=== PATIENT | female | born 1985 | race Caucasian/White ===

== ENCOUNTER 2017-01-14 18:48 | Emergency (ER) | payer OTHER ==
[~2017-01-14] VITALS: Ht 185.4 cm; Wt 81.8 kg
[~2017-01-14 18:48] MED LIST: EC NAPROSYN500 MG PO; NORCO 325 MG-51 TAB PO; NUVARING1 ICR VG; ZANTAC 150MG T150 MG PO; ZYRTEC 10MG10 MG PO
[2017-01-14 18:49] VITALS: TEMP 98.1
[2017-01-14] MEDS ORDERED: DASETTA 1/35 351 TAB PO (18:52)
[2017-01-14 19:25] LABS: BASO % 0.7 % (0.0-2.0); EOS # 0.4 (0.0-0.7); EOS % 6.7 % (0-4.0); GRAN # 2.7 (1.4-6.5); GRAN % 43.5 % (42.2-75.2); HEMATOCRIT 39.5 % (37.0-47.0); HEMOGLOBIN 13.2 g/dl (12.5-16.0); LYMPH # 2.4 (1.2-3.4); LYMPH % 38.6 % (20.0-51.0); MEAN CELL VOLUME 86 fl (80.0-100.0); MEAN CORPUSCULAR HEMOGLOBIN 29 pg (27.0-31.0); MEAN CORPUSCULAR HGB CONC 33 g/dl (33.0-37.0); MEAN PLATELET VOLUME 10.9 fl (7.4-10.4); MONO # 0.6 (0.1-0.6); MONO % 10.3 % (1.7-9.3); PLATELET COUNT 234 K/mm3 (130-400); RED BLOOD COUNT 4.62 M/mm3 (4.10-5.30); REDCELL DISTRIBUTION WIDTH-CV 12.5 % (11.5-14.5); WHITE BLOOD COUNT 6.1 K/mm3 (4.8-10.8)
[2017-01-14 19:35] LABS: ADJUSTED CALCIUM 9.2 mg/dL (8.4-10.2); BILIRUBIN,TOTAL 0.5 mg/dL (0.0-1.0); CALCIUM 9.2 mg/dL (8.4-10.2); CREATININE, serum 0.72 mg/dL (0.52-1.25); TOTAL PROTEIN 7.2 gm/dL (6.4-8.2)
[2017-01-14] MEDS ORDERED: ULTRAM 50MG TAB50 MG PO (20:01)
[2017-01-14] MEDS ORDERED: ZOFRAN8 MG PO (20:01)
[2017-01-14] MEDS ORDERED: PRIL40 PO (20:05)
[2017-01-14 20:24] LABS: PH 6 (5-8); URINE APPEARANCE Hazy; URINE BACTERIA Rare /hpf; URINE BILIRUBIN Negative (NEGATIVE); URINE BLOOD Negative (NEGATIVE); URINE COLOR Straw; URINE GLUCOSE Negative (NEGATIVE); URINE KETONE Negative (NEGATIVE); URINE RBC 0-2 /hpf; URINE UROBILINOGEN Negative (NEGATIVE)
[2017-01-14 21:25] VITALS: BP 105/66; PULSE 81
== END 2017-01-14 21:25 | disposition home or self-care (01) ==
LOC: COL.ER 18:48
PROVIDERS: Emergency Medicine
DX: R10.11 Right upper quadrant pain (principal); R10.12 Left upper quadrant pain; R10.13 Epigastric pain
CPT/HCPCS: J1170; J2405; J7030

== ENCOUNTER 2018-06-17 21:00 | Emergency (ER) | payer OTHER ==
[~2018-06-17] VITALS: Ht 185.4 cm; Wt 75.9 kg
[~2018-06-17 21:00] MED LIST changes: +DASETTA 1/35 351 TAB PO; +PRIL40 PO; +ULTRAM 50MG TAB50 MG PO; +ZOFRAN8 MG PO
[2018-06-17 21:13] VITALS: BP 126/77; TEMP 99
[2018-06-17] MEDS ORDERED: NORCO 325 MG-51 TAB PO (22:59)
[2018-06-17 23:35] VITALS: PULSE 78
== END 2018-06-17 23:35 | disposition home or self-care (01) ==
LOC: COL.ER 21:00
DX: S80.12XA Contusion of left lower leg, initial encounter (principal); W55.89XA Other contact with other mammals, initial encounter
CPT/HCPCS: J1170; J1885; J3010; J7030

== ENCOUNTER 2019-04-23 11:49 | Outpatient (CLI) | payer OTHER ==
[~2019-04-23] VITALS: Ht 2.5 cm; Wt 96.8 kg
--- NOTE | 2019-04-23 11:30 | NUR ---
Pt arrives on unit ambulatory. States possible SROM at 0900 while walking downstairs. Reports GFM. Denies vaginal bleeding or regular ctx. Changed into clean gown. EFM and toco applied. VSS. Amniotest negative. SVE per this RN /2 with TAYLOR. Admission assessment completed. Pt updated on POC. Dr. Corcoran notified of pt status. See physician notification. 1200-Pt taken off monitors. Discharge instructions given. No questions or concerns at this time. Leaves unit ambulatory with family.
[2019-04-23] MEDS ORDERED: PRENATAL MVI (11:55)
[2019-04-23 12:00] VITALS: BP 134/95; PULSE 93; TEMP 98.1
== END 2019-04-23 12:00 | disposition home or self-care (01) ==
LOC: LDRO 11:49 → LDR 11:49 → LDRO 12:00 → LDR 12:00
DX: Z34.93 Encounter for supervision of normal pregnancy, unspecified, third trimester (principal); Z3A.40 40 weeks gestation of pregnancy
CPT/HCPCS: OP

== ENCOUNTER 2019-04-23 23:37 | Inpatient (IN) | payer OTHER ==
[~2019-04-23] VITALS: Ht 185.4 cm; Wt 96.8 kg
[~2019-04-23 23:37] MED LIST changes: +PRENATAL MVI
[2019-04-24] VITALS (42 sets, daily range): BP systolic 93–158; BP diastolic 50–89; PULSE 72–116; TEMP 97.1–98.3
[2019-04-24 01:46] LABS: BASO % 0.3 % (0.0-2.0); EOS # 0.1 (0.0-0.7); EOS % 1.2 % (0-4.0); GRAN # 5.5 (1.4-6.5); GRAN % 64.5 % (42.2-75.2); HEMATOCRIT 38.7 % (37.0-47.0); HEMOGLOBIN 12.6 g/dl (12.5-16.0); LYMPH # 2.2 (1.2-3.4); LYMPH % 25.2 % (20.0-51.0); MEAN CELL VOLUME 81 fl (80.0-100.0); MEAN CORPUSCULAR HEMOGLOBIN 26 pg (27.0-31.0); MEAN CORPUSCULAR HGB CONC 33 g/dl (33.0-37.0); MEAN PLATELET VOLUME 12.6 fl (7.4-10.4); MONO # 0.7 (0.1-0.6); MONO % 8.5 % (1.7-9.3); PLATELET COUNT 208 K/mm3 (130-400); RED BLOOD COUNT 4.77 M/mm3 (4.10-5.30); REDCELL DISTRIBUTION WIDTH-CV 15.2 % (11.5-14.5)
--- NOTE | 2019-04-24 02:00 | NUR ---
2345- Patient ambulatory to [facility] with friend and maintenance mechanic technician. Patient and friend oriented to room. Patient into restroom to change into gown. 2352- EFM and TOCO on and tracing. Patient here with complaints of contractions every 4-5 minutes starting at 2100. Patient was on L&D at 1100 today for SROM check. Patient denies LOF or bleeding. Patient states she has had increased pink-tinged discharge today. IOL 04/24/19. Assessment completed. 0000- SVE 4-/-2 0100- SVE /-2 with bulgy BOF. 0100- See Physician Notification. 0130- Consents signed. IV started. LR bolus infusing. PCN G #1 infusing per GBS+ protocol. 0145- CT Garces called for epidural placement. 0210- CT Garces at bedside for epidural placement. 0220- Single Shot. See Anesthesia Record. 0223- Test Dose. See Anesthesia Record. 0230- Family History unobtainable due to adoption. 0300- SVE 5-/-2
--- NOTE | 2019-04-24 09:24 | NUR ---
[address] AGUILAR, MECONIUM FLUID NOTED ON PAD. WILL START PUSHING WITH PATIENT AT THIS TIME.
--- NOTE | 2019-04-24 09:28 | NUR ---
0820 DR AGUILAR AT BEDSIDE FOR DELIVERY. PATIENT PUSHES WITH CONTRACTIONS. DELIVERS BABY BOY AT THIS TIME. CORD CLAMPED AND CUT BY DR AGUILAR AT THIS TIME. BABY TO MOMS CHEST. STRONG CRY NOTED. SMALL REPAIR DONE BY DR AGUILAR. 0827 PLACENTA DELIVERED AT THIS TIME. PITOCIN STARTED AT 333/HR AT THIS TIME. FUNDUS FIRM, BLEEDING NOTED WNL. PATIENT DENIES NEEDS AT THIS TIME.
[2019-04-25 04:15] VITALS: BP 122/80; PULSE 85
--- NOTE | 2019-04-25 10:04 | NUR ---
Initial visit; Parents thanked Sample Collector for offering congratulations and God's blessings for the of their son. Sample Collector thanked family for choosing [facility].
[2019-04-25] MEDS ORDERED: IBU600 MG PO (13:01)
[2019-04-25 16:08] VITALS: BP 104/66; PULSE 76; TEMP 98.4
[2019-04-25 20:30] VITALS: BP 122/66; PULSE 89; TEMP 98.1
[2019-04-26 10:09] VITALS: BP 115/64; PULSE 78; TEMP 97.9
== END 2019-04-26 12:10 | disposition home or self-care (01) | DRG 807 ==
LOC: LDRO 23:37 → OB 04-24 01:10 → LDR 04-24 01:10 → OB 04-24 11:00
PROVIDERS: ADMIT Obstetrics & Gynecology
PROC: 10E0XZZ Delivery of Products of Conception, External Approach (ICD-10-PCS; principal; 2019-04-24)
PROC: 0W8NXZZ Division of Female Perineum, External Approach (ICD-10-PCS; 2019-04-24)
PROC: 0UQMXZZ Repair Vulva, External Approach (ICD-10-PCS; 2019-04-24)
DX: O48.0 Post-term pregnancy (principal); Z37.0 Single live birth; Z3A.40 40 weeks gestation of pregnancy; O77.0 Labor and delivery complicated by meconium in amniotic fluid; O70.0 First degree perineal laceration during delivery
CPT/HCPCS: J2540; J2590; J2795; J7120

== ENCOUNTER 2020-05-20 17:01 | Emergency (ER) | payer BC, MEDICAID ==
[~2020-05-20] VITALS: Ht 185.4 cm; Wt 90.9 kg
[~2020-05-20 17:01] MED LIST changes: +IBU600 MG PO
[2020-05-20 17:14] VITALS: TEMP 98.3
[2020-05-20 18:00] VITALS: BP 125/69; PULSE 81
[2020-05-20] MEDS ORDERED: SLOW FE142 MG PO (18:55)
== END 2020-05-20 18:15 | disposition other institution (70) ==
LOC: COL.ER 17:01
DX: O26.893 Other specified pregnancy related conditions, third trimester (principal); R03.1 Nonspecific low blood-pressure reading; R10.30 Lower abdominal pain, unspecified; Z79.1 Long term (current) use of non-steroidal anti-inflammatories (NSAID); Z3A.30 30 weeks gestation of pregnancy

== ENCOUNTER 2020-05-20 18:49 | Outpatient (CLI) | payer BC, MEDICAID ==
[2020-05-20] VITALS (8 sets, daily range): BP systolic 104–127; BP diastolic 53–65; PULSE 68–78; TEMP 98.4
[~2020-05-20] VITALS: Ht 182.9 cm; Wt 91.4 kg
[2020-05-20] MEDS ORDERED: SLOW FE142 MG PO (18:55)
--- NOTE | 2020-05-20 19:00 | NUR ---
Patient here from ER. Patient states that she has been having intermittent right lower quadrant pain that sometimes is sharp pain into her vaginal area. Patient denies any pain while lying in bed. Patient states that today she has been feeling dizziness and headache upon standing. Has checked her BP today and has been low for her. Patient states her baby has been active, denies any leaking of fluid, vaginal bleeding. FHR and contractions placed and explained. VS stable and WNL. Assessment completed and doctor called for orders.
--- NOTE | 2020-05-20 20:00 | NUR ---
Patient discharge instructions reviewed with patient. Patient states she feels better after hearing baby. INT in left anticubital removed. Patient off monitor and off unit at 2009.
== END 2020-05-20 20:10 | disposition home or self-care (01) ==
LOC: LDRO 18:49
DX: O13.3 Gestational [pregnancy-induced] hypertension without significant proteinuria, third trimester (principal); O26.893 Other specified pregnancy related conditions, third trimester; R42 Dizziness and giddiness; R10.31 Right lower quadrant pain; Z3A.30 30 weeks gestation of pregnancy

== ENCOUNTER 2020-07-22 11:59 | Inpatient (IN) | payer BC, MEDICAID ==
[~2020-07-22] VITALS: Ht 185.4 cm; Wt 95.0 kg
[2020-07-22] VITALS (17 sets, daily range): BP systolic 85–125; BP diastolic 7–88; PULSE 81–112; TEMP 97.5–98.1
--- NOTE | 2020-07-22 11:50 | NUR ---
Pt here from admissions with c/o contractions that started last night. Pt to EFM, explained. G3L2, 39.3 weeks gestation. GBS negative. SVE 6-7/100/-2 with bulgy bag of campos. Dr Fabian here on unit and notified. Orders received to admit and may have an epidural. IV started to right hand x 1 attempt and blood drawn from IV site per this nurse. LR bolus started and Marilyn PLACING JUDGE on unit and notified she is requesting an epidural. Consents signed. Assessment complete. Pt denies any leaking of fluid or vaginal bleeding. FHR reactive and when pt sits up with contraction, maternal pulse tracing on EFM intermittently. 1225:Marilyn PLACING JUDGE at bedside. Pt to sitting up on side of bed. Epidural placed and test dose at 1236. 1245:Pt repositioned to right side. 1250:Dr Fabian here and SVE: 6-7/100/-1, AROM and clear fluid noted.
[~2020-07-22 11:59] MED LIST changes: +SLOW FE142 MG PO
--- NOTE | 2020-07-22 12:05 | NUR ---
Pt refuses to be screened for covid at this time. Dr. Fabian notified, no new orders.
[2020-07-22 12:36] LABS: BASO % 0.3 % (0.0-2.0); EOS # 0.2 (0.0-0.7); EOS % 1.8 % (0-4.0); GRAN # 10.6 (1.4-6.5); HEMATOCRIT 41.2 % (37.0-47.0); HEMOGLOBIN 13.6 g/dl (12.5-16.0); LYMPH # 1.4 (1.2-3.4); LYMPH % 10.9 % (20.0-51.0); MEAN CELL VOLUME 84 fl (80.0-100.0); MEAN CORPUSCULAR HEMOGLOBIN 28 pg (27.0-31.0); MEAN CORPUSCULAR HGB CONC 33 g/dl (33.0-37.0); MEAN PLATELET VOLUME 11.2 fl (7.4-10.4); MONO # 0.9 (0.1-0.6); MONO % 6.4 % (1.7-9.3); PLATELET COUNT 222 K/mm3 (130-400); RED BLOOD COUNT 4.88 M/mm3 (4.10-5.30); REDCELL DISTRIBUTION WIDTH-CV 14.6 % (11.5-14.5)
--- NOTE | 2020-07-22 13:00 | NUR ---
BP decreased to 91/50. Pt feeling dizzy and lightheaded and pale. Pt's head of bed decreased and 10mg ephedrine given IV. Pt repositioned to right lateral. 1305:pt feeling much better, BP increaesd and now WNL.
--- NOTE | 2020-07-22 14:15 | NUR ---
Pt comfortable with epidural. SVE: complete +1. Dr Fabian called to notify, see physician notification. Turner catheter removed, pt prepped for delivery. 1438:Dr Fabian here. 1442:Pt begins to push and pushes with two contractions. 1446: of 's head and shoulders. Cord clamped and cut and baby in care of Carmen OLIVAS. Perineum intact. 1451:Spontaneous delivery of placenta. LR with pitocin infusing per protocol. fundus firm, bleeding WNL. Pericare done and new pads and ice pack in place.
--- NOTE | 2020-07-22 17:30 | NUR ---
Pt up and ambulates to bathroom with assist. Voids 700cc. Pericare instructions given, pt verbalizes understanding. New gown, underwear and ice packs in place. Fundus firm, bleeding WNL. Pt taken to room 215 via wheelchair, pt denies any pain.
[2020-07-23 01:55] VITALS: BP 106/55; PULSE 71; TEMP 97.7
[2020-07-23] MEDS ORDERED: IBU600 MG PO (08:42)
--- NOTE | 2020-07-23 08:43 | NUR ---
Initial visit attempt; Family resting, Latin American Studies Director left card of congratulations for the of their son and information regarding the availability of spiritual care at our hospital.
[2020-07-23 08:50] VITALS: BP 104/62; PULSE 74; TEMP 97.7
== END 2020-07-23 16:05 | disposition home or self-care (01) | DRG 807 ==
LOC: LDRO 11:59 → OB 12:00 → LDR 12:00 → OB 14:30
PROVIDERS: ADMIT Obstetrics & Gynecology
PROC: 10E0XZZ Delivery of Products of Conception, External Approach (ICD-10-PCS; principal; 2020-07-22)
PROC: 10907ZC Drainage of Amniotic Fluid, Therapeutic from Products of Conception, Via Natural or Artificial Opening (ICD-10-PCS; 2020-07-22)
DX: O99.02 Anemia complicating childbirth (principal); Z37.0 Single live birth; D64.9 Anemia, unspecified; Z3A.39 39 weeks gestation of pregnancy
CPT/HCPCS: J2590; J2795; J7120

== ENCOUNTER → 2022-06-16 | Outpatient (CLI) | payer BC, MEDICAID ==
[~2022-06-16] MED LIST changes: +FLEXERIL 1010 MG/TAB PO
== END ==
LOC: COL.CARD 11:01
DX: R00.2 Palpitations (principal)

== ENCOUNTER 2022-06-17 21:41 | Emergency (ER) | payer MEDICAID ==
[~2022-06-17] VITALS: Ht 185.4 cm; Wt 78.6 kg
[~2022-06-17 21:41] MED LIST changes: -FLEXERIL 1010 MG/TAB PO
[2022-06-17 21:44] VITALS: TEMP 98
[2022-06-17 22:26] LABS: ALANINE AMINOTRANSFERASE 27 U/L (0-55); ALBUMIN 4.4 gm/dL (3.5-5.0); ALKALINE PHOSPHATASE 69 U/L (40-150); ANION GAP 13 mmol/L (7-16); AST,SGOT 30 U/L (5-34); BILIRUBIN,TOTAL 0.2 mg/dL (0.2-1.2); BLOOD UREA NITROGEN 14 mg/dL (7-19); CALCIUM 9.5 mg/dL (8.4-10.2); CARBON DIOXIDE 21 mmol/L (22-29); CHLORIDE 107 mmol/L (98-107); GLUCOSE 77 mg/dL (70-99); POTASSIUM 4.3 mmol/L (3.5-4.5); SODIUM 141 mmol/L (136-145); TOTAL PROTEIN 7.6 gm/dL (6.2-8.1)
[2022-06-17 22:32] LABS: TROPONIN-I < 0.010 ng/mL (0.00-0.033)
[2022-06-17 22:51] LABS: BASO # 0.1 K/mm3 (0.0-0.2); BASO % 0.8 % (0.0-2.0); EOS # 0.3 K/mm3 (0.0-0.7); EOS % 5.6 % (0.0-4.0); GRAN # 2.4 K/mm3 (1.4-6.5); GRAN % 41.2 % (42.2-75.2); HEMATOCRIT 37.8 % (37.0-47.0); HEMOGLOBIN 12.3 g/dl (12.5-16.0); LYMPH # 2.4 K/mm3 (1.2-3.4); LYMPH % 40.6 % (20.0-51.0); MEAN CELL VOLUME 84 fl (80.0-100.0); MEAN CORPUSCULAR HEMOGLOBIN 27 pg (27-31); MEAN CORPUSCULAR HGB CONC 33 g/dl (33.0-37.0); MONO # 0.7 K/mm3 (0.1-0.6); MONO % 11.6 % (1.7-9.3); PLATELET COUNT 228 K/mm3 (130-400); REDCELL DISTRIBUTION WIDTH-CV 12.9 % (11.5-14.5)
[2022-06-17] MEDS ORDERED: FLEXERIL 1010 MG/TAB PO (23:01)
[2022-06-17 23:16] VITALS: BP 116/69; PULSE 73
== END 2022-06-17 23:16 | disposition home or self-care (01) ==
LOC: COL.ER 21:41
PROVIDERS: Emergency Medicine
DX: R20.2 Paresthesia of skin (principal); Z28.310 Unvaccinated for COVID-19

== ENCOUNTER 2022-07-31 18:14 | Emergency (ER) | payer MEDICAID ==
[~2022-07-31] VITALS: Ht 185.4 cm; Wt 78.6 kg
[~2022-07-31 18:14] MED LIST changes: +FLEXERIL 1010 MG/TAB PO
[2022-07-31 18:27] VITALS: TEMP 98.7
[2022-07-31 19:28] LABS: BASO % 0.5 % (0.0-2.0); EOS # 0.1 K/mm3 (0.0-0.7); EOS % 1.3 % (0.0-4.0); GRAN # 2.1 K/mm3 (1.4-6.5); GRAN % 54.5 % (42.2-75.2); HEMATOCRIT 36.4 % (37.0-47.0); HEMOGLOBIN 12.1 g/dl (12.5-16.0); LYMPH # 1.2 K/mm3 (1.2-3.4); LYMPH % 30.6 % (20.0-51.0); MEAN CELL VOLUME 84 fl (80.0-100.0); MEAN CORPUSCULAR HEMOGLOBIN 28 pg (27-31); MEAN CORPUSCULAR HGB CONC 33 g/dl (33.0-37.0); MEAN PLATELET VOLUME 10.5 fl (7.4-10.4); MONO # 0.5 K/mm3 (0.1-0.6); MONO % 13.1 % (1.7-9.3); PLATELET COUNT 181 K/mm3 (130-400); RED BLOOD COUNT 4.36 M/mm3 (4.10-5.30); REDCELL DISTRIBUTION WIDTH-CV 13.3 % (11.5-14.5)
[2022-07-31 20:00] LABS: ALBUMIN 3.6 gm/dL (3.5-5.0); CALCIUM 9.4 mg/dL (8.4-10.2); CREATININE, serum 0.76 mg/dL (0.57-1.11); TOTAL PROTEIN 6.9 gm/dL (6.2-8.1)
[2022-07-31 20:01] LABS: BILIRUBIN,TOTAL 0.2 mg/dL (0.2-1.2); C-REACTIVE PROTEIN 2.01 mg/dL (0.00-0.50); TROPONIN-I 0.01 ng/mL (0.00-0.033)
[2022-07-31] MEDS ORDERED: FIORICET 325 MG1 TA1 PO (21:32)
[2022-07-31 21:49] VITALS: BP 112/64; PULSE 74
== END 2022-07-31 21:52 | disposition home or self-care (01) ==
LOC: COL.ER 18:14
PROVIDERS: Nurse Practitioner
DX: R51.9 Headache, unspecified (principal); R07.89 Other chest pain; Z86.69 Personal history of other diseases of the nervous system and sense organs; Z20.822 Contact with and (suspected) exposure to COVID-19; Z28.310 Unvaccinated for COVID-19
CPT/HCPCS: J1200; J2765; J7030